=== PATIENT | female | born 1945 | race Two or more races ===

== ENCOUNTER → 2017-06-18 | Outpatient (CLI) | payer MEDICARE, OTHER ==
[~2017-06-18] MED LIST: ASPI-825 PO; ERGO500044 PO; FURO20 PO; GLIM4TAB3 PO; INSU100V12 SQ; LEVO88TA7 PO; LORA10TA7 PO; LOSA1TAB12 PO; MECL-111 PO; METF10002 PO; OMEP40CA12 PO; POTA20TA11 PO; PREG100C PO; ROSU40 PO; SITA50 PO; TRAM50TA4 PO; TRIA1TAB3 PO
== END | disposition home or self-care (01) ==
LOC: RADPV 08:12
PROVIDERS: ATTEND Internal Medicine Cardiovascular Disease
DX: I34.0 Nonrheumatic mitral (valve) insufficiency (principal); I50.1 Left ventricular failure, unspecified
CPT/HCPCS: 93306